=== PATIENT | female | born 1955 | race Caucasian/White ===

== ENCOUNTER 2016-10-05 10:00 | Outpatient (RCR) | payer BC | END 2016-10-26 | disposition home or self-care (01) | LOC: PTY 10:00 | DX: M25.372 Other instability, left ankle (principal); M76.72 Peroneal tendinitis, left leg; G57.62 Lesion of plantar nerve, left lower limb ==

== ENCOUNTER 2016-11-04 07:22 | Outpatient (RCR) | payer BC | END 2016-11-26 | disposition home or self-care (01) | LOC: PTY 07:22 | DX: M25.372 Other instability, left ankle (principal); M76.72 Peroneal tendinitis, left leg; G57.62 Lesion of plantar nerve, left lower limb ==

== ENCOUNTER 2017-02-24 08:30 | Outpatient (RCR) | payer BC | END 2017-02-25 | disposition home or self-care (01) | LOC: PTY 08:30 | DX: M25.372 Other instability, left ankle (principal); M76.72 Peroneal tendinitis, left leg; G57.62 Lesion of plantar nerve, left lower limb | CPT/HCPCS: 97035; 97140; 97161; G0283 ==

== ENCOUNTER 2017-03-05 08:30 | Outpatient (RCR) | payer BC | END 2017-03-28 | disposition home or self-care (01) | LOC: PTY 08:30 | DX: G57.62 Lesion of plantar nerve, left lower limb (principal); L91.0 Hypertrophic scar; Z85.3 Personal history of malignant neoplasm of breast | CPT/HCPCS: 97035; 97140; G0283 ==